=== PATIENT | female | born 1975 | race Two or more races ===

== ENCOUNTER → 2017-02-17 | Outpatient (REF) | payer BC | LOC: M LAB REF 18:07 | PROVIDERS: ATTEND Specialist | DX: R87.610 Atypical squamous cells of undetermined significance on cytologic smear of cervix (ASC-US) (principal) ==

== ENCOUNTER → 2017-04-12 | Outpatient (REF) | payer BC ==
[2017-04-12 15:49] LABS: CHLAMYDIA DNA AMPLIFICATION NEGATIVE (NEGATIVE); GC DNA AMPLIFICATION NEGATIVE (NEGATIVE)
== END ==
LOC: M LAB REF 13:17
DX: Z11.3 Encounter for screening for infections with a predominantly sexual mode of transmission (principal)
CPT/HCPCS: 87591

== ENCOUNTER → 2017-04-12 | Outpatient (CLI) | payer BC ==
[2017-04-13 11:02] LABS: HEPATITIS B SURFACE ANTIGEN NEGATIVE (NEGATIVE)
[2017-04-13 11:06] LABS: HEPATITIS C VIRUS ABY INDEX < 0.0 INDEX (<0.8)
[2017-04-13 11:07] LABS: HIV 1&2 SCREEN CENTAUR NEGATIVE (NEGATIVE)
== END ==
LOC: M SMT 11:32
DX: Z11.3 Encounter for screening for infections with a predominantly sexual mode of transmission (principal)

== ENCOUNTER → 2017-05-04 | Outpatient (REF) | payer BC | LOC: M LAB REF 17:23 | DX: R87.613 High grade squamous intraepithelial lesion on cytologic smear of cervix (HGSIL) (principal) | CPT/HCPCS: 88304 ==

== ENCOUNTER → 2017-08-22 | Outpatient (CLI) | payer BC | LOC: M RAD 16:50 | DX: Z12.31 Encounter for screening mammogram for malignant neoplasm of breast (principal); R92.8 Other abnormal and inconclusive findings on diagnostic imaging of breast | CPT/HCPCS: 77067 ==

== ENCOUNTER → 2017-12-12 | Outpatient (REF) | payer BC ==
[2017-12-14 15:03] LABS: HPV HYBRID CAPTURE II Negative (Negative)
== END ==
LOC: M LAB REF 18:26
DX: N87.0 Mild cervical dysplasia (principal)
CPT/HCPCS: G0123